=== PATIENT | female | born 2000 | race Caucasian/White ===

== ENCOUNTER 2019-10-29 13:02 | Emergency (ER) | payer SELFPAY ==
[~2019-10-29] VITALS: Ht 167.6 cm; Wt 78.9 kg
[2019-10-29 13:14] VITALS: BP_SYST 104
[2019-10-29 13:58] VITALS: BP_SYST 104
== END 2019-10-29 13:55 | disposition home or self-care (01) ==
LOC: SED 13:02
DX: N93.8 Other specified abnormal uterine and vaginal bleeding (principal)
CPT/HCPCS: 99283

== ENCOUNTER 2021-05-23 05:38 | Emergency (ER) | payer MEDICAID, SELFPAY ==
[~2021-05-23] VITALS: Ht 165.1 cm; Wt 81.6 kg
[2021-05-23 05:50] VITALS: BP_SYST 112
[2021-05-23] MEDS ORDERED: IBUP-1969 PO (06:25)
[2021-05-23] MEDS ORDERED: BENZ1LOZ58 PO (06:25)
[2021-05-23 07:42] VITALS: BP_SYST 112
== END 2021-05-23 07:42 | disposition home or self-care (01) ==
LOC: SED 05:38
DX: J06.9 Acute upper respiratory infection, unspecified (principal); Z79.899 Other long term (current) drug therapy; Z20.822 Contact with and (suspected) exposure to COVID-19
CPT/HCPCS: 36415; 99283